=== PATIENT | male | born 1965 | race Caucasian/White ===

== ENCOUNTER → 2018-02-17 08:00 | Outpatient (CLI) | payer OTHER, SELFPAY ==
--- NOTE | 2018-02-17 | DI.MRI.S_ITS ---
PROCEDURE: MR ELBOW LT W CON INDICATIONS: LEFT ELBOW PAIN TECHNIQUE: Noncontrast coronal proton density fast spin echo and T2 fast spin echo with fat saturation, axial and sagittal T1 spin echo and T2 fast spin echo with fat saturation through the elbow. COMPARISON: None. FINDINGS: Image quality: Excellent. Lateral structures: The lateral ulnar collateral ligament and radial collateral ligament both appear intact. The annular ligament also appears intact. The overlying common extensor tendon demonstrates mild tendinopathy proximally without a discrete tear. Medial structures: The ulnar collateral ligament appears intact. The overlying common flexor tendon demonstrates mild attenuated signal proximally with mild peritendinous edema compatible with a mild strain. The ulnar nerve appears normal in size and signal within the cubital tunnel. Anterior structures: The biceps and brachialis tendons both appear intact as they insert onto the proximal radius and ulna, respectively. No bicipitoradial bursal fluid. The median and radial neurovascular bundles appear normal; no focal muscle atrophy to suggest nerve impingement. Posterior structures: The conjoint triceps tendon from the long and lateral heads appears intact. The medial head of the triceps tendon also appears normal, with direct muscle insertion onto the olecranon. No olecranon bursal fluid. Bone and cartilage: No bone marrow contusions or fractures. There is a small focus of cartilage thinning and heterogeneity along the capitellum associated with mild subchondral sclerosis. No associated subchondral edema. IMPRESSION: 1. Mild strain at the origin of the common flexor tendon. 2. Mild focal cartilage degeneration along the capitellum with focal subchondral sclerosis. Dictated by: Chriss Baig M.D. on 02/17/2018 at 14:52 Approved by: Chriss Baig M.D. on 02/17/2018 at 15:04
== END ==
PROVIDERS: PCP Nurse Practitioner Family; Visit Provider Orthopaedic Surgery
DX: S56.212A Strain of other flexor muscle, fascia and tendon at forearm level, left arm, initial encounter (principal); M25.522 Pain in left elbow
CPT/HCPCS: 73221

== ENCOUNTER 2019-01-13 17:37 | Observation (INO) | payer OTHER, SELFPAY ==
[2019-01-13] VITALS (11 sets, daily range): BP systolic 129–154; BP diastolic 86–110; PULSE 65–98; RESP 13–24; TEMP 36.8–37.3; O2SAT 94–100; BMI 25.3
--- NOTE | 2019-01-13 17:57 | PC.NURSE ---
Patient saw by PCP sent to ER for evaluation of possible abscess in rectum. Patient denies fever chills or abnormal BM. Denies trauma or injury.
[2019-01-13 18:00] LABS: Add Manual Diff / Slide Review NO; Basophils Absolute Auto 100 /uL (0-100); Basophils Percent Auto 0.6 % (0-2); Eosinophils Absolute Auto 100 /uL (0-450); Eosinophils Percent Auto 1.2 % (2-4); Hematocrit 44.7 % (41-53); Hemoglobin 14.9 g/dL (13.5-17.5); Lymphocytes Absolute Auto 1500 /uL (1100-4500); Lymphocytes Percent Auto 17.9 % (25-40); Mean Corpuscular HGB Conc 33.5 % (30-36); Mean Corpuscular Hemoglobin 31.2 PG (26-34); Mean Corpuscular Volume 93.3 fL (80-100); Monocytes Absolute Auto 700 /uL (0-900); Monocytes Percent Auto 9.1 % (3-14); Neutrophils Absolute Auto 5800 /uL (1500-7000); Neutrophils Percent Auto 71.2 % (50-75); Platelet Count 240 X10^3/uL (150-400); Red Blood Cell Count 4.79 X10^6/uL (4.5-5.9); Red Cell Distribution Width 13.5 % (11.6-14.8); White Blood Cell Count 8.2 X10^3/uL (4.5-11.0)
--- NOTE | 2019-01-13 18:10 | DI.CT.S_ITS ---
PROCEDURE: CT ABDOMEN PELVIS W CON INDICATIONS: ? rectal abscess TECHNIQUE: After the administration of intravenous contrast, 5 mm thick sections acquired from the diaphragm to the symphysis. 5 mm coronal and sagittal reformats were acquired. For radiation dose reduction, the following was used: automated exposure control, adjustment of mA and/or kV according to patient size. COMPARISON: None. FINDINGS: Image quality: Excellent. ABDOMEN: Lung bases: Lung bases are clear. Heart size is normal. Solid organs: Liver is normal in size and enhancement. Diffuse fatty infiltration of the liver. Gallbladder is within normal limits. Biliary system is non dilated. Pancreas enhances normally. Spleen is normal in size and enhancement. No adrenal nodules. Kidneys demonstrate normal size and enhancement, without hydronephrosis. Peritoneum and bowel: Bowel loops demonstrate normal wall thickness and caliber. There is a 2.8 x 1.7 x 1.7 cm posterior left perirectal fluid collection suspicious for perirectal abscess. No free fluid or air. Appendix is normal. Nodes and vessels: No retroperitoneal or mesenteric adenopathy by size criteria. Aorta and inferior vena cava are normal in size. Miscellaneous: No ventral hernias. PELVIS: Genitourinary: Bladder wall thickness is normal. Miscellaneous: No inguinal hernias or adenopathy. Bones: No suspicious bony lesions. No vertebral body compression fractures. Spine degenerative disease and facet arthropathy noted. Bilateral hip arthroplasties. IMPRESSION: Probable 2.8 x 1.7 x 1.7 cm posterior left perirectal abscess. Dictated by: Henna Artis MD, PhD on 01/13/2019 at 19:31 Approved by: Henna Artis MD, PhD on 01/13/2019 at 19:34
[2019-01-13 18:21] LABS: Alanine Aminotransferase 25 IU/L (21-72); Albumin 4.3 g/dL (3.5-5.0); Albumin Globulin Ratio 1.3 (1.0-2.8); Alkaline Phosphatase 94 U/L (38-126); Aspartate Aminotransferase 32 IU/L (17-59); BUN Creatinine Ratio 14.4 (6-22); Bilirubin Total 0.6 mg/dL (0.2-1.3); Blood Urea Nitrogen 13 mg/dL (9-20); Calcium 9.1 mg/dL (8.4-10.2); Carbon Dioxide 27 mmol/L (22-32); Chloride 105 mmol/L (98-107); Estimated Glomerular Filt Rate > 60.0 mL/min (>60); Globulin 3.2 g/dL (1.7-4.1); Glucose 92 mg/dL (70-100); HEMOLYSIS < 15 (0-50); Potassium 4.3 mmol/L (3.4-5.1); Sodium 141 mmol/L (137-145); Total Protein 7.5 g/dL (6.3-8.2)
[2019-01-13] MEDS: SODIUM CHLORIDE 0.9% 1,000 ML 150 ML IV (19:01)
[2019-01-13] MEDS: MORPHINE 4 MG/ML INJ IV (20:38)
[2019-01-13] MEDS: ONDANSETRON 4 MG/2 ML INJ IV (20:38)
[2019-01-13] MEDS: PIPERACILLIN-TAZO 3.375 GM/50 ML FROZ.PIGGY IV (20:38)
--- NOTE | 2019-01-13 21:03 | ED.SKABFB ---
HPI - Skin/Abscess/Foreign Bdy <ILA Dominguez - Last Filed: 01/13/19 21:10> General Chief complaint: Skin/Abscess/Foreign Body Stated complaint: possible rectal abscess Time Seen by Provider: 01/13/19 17:54 Source: patient and family Mode of arrival: ambulatory Limitations: no limitations History of Present Illness HPI narrative: The patient is a 53-year-old male with a chief complaint of rectal pain. He was sent by his PCP in Thursday, is concerned about a rectal abscess. She states that there is nothing external on exam, but she feels a painful rectal abscess whole left side on internal exam. She would like to have a CT. No fever nausea vomiting or diarrhea. No abdominal pain. He has not taken anything for pain. This pain started on Thursday, worsening with bowel movements. Related Data Allergies Allergy/AdvReac Type Severity Reaction Status Date / Time Penicillins Allergy Verified 01/13/19 17:57 Review of Systems <ILA Dominguez - Last Filed: 01/13/19 21:10> Review of Systems GENERAL: Denies chills, fatigue, malaise, fever, sweats. HEENT: Denies sinus pain, ear pain, sore throat, difficulty swallowing, dizziness. RESPIRATORY: Denies dyspnea, cough, wheezing, hemoptysis, sputum. CARDIOVASCULAR: Denies chest pain, palpitations, orthopnea, edema, GASTROINTESTINAL: See HPI : Denies dysuria, frequency, incontinence, hematuria, urinary retention. MUSCULOSKELETAL: denies weakness, joint pain, or bony pain SKIN: Denies rash, skin lesions, or other NEUROLOGIC: Denies weakness, headache, numbness, change in speech, confusion, seizures, incoordination. PSYCHIATRIC: No concerning psychosocial issues. 12 point review of systems is negative except for those stated above PFSH <ILA Dominguez - Last Filed: 01/13/19 21:10> Surgical History History of hip replacement (Acute) Social History Smoking Status: Never smoker Social History household members: spouse Smoking Status: Never smoker Exam <ILA Dominguez - Last Filed: 01/13/19 21:10> Narrative Exam Narrative: GENERAL: This is a well-nourished, well-developed patient, in no acute distress HEAD: Atraumatic. Normocephalic. No temporal or scalp tenderness. EYES: Pupils equal round and reactive. Extraocular motions intact. No scleral icterus. No injection or drainage. ENT: Nose without bleeding, purulent drainage or septal hematoma. Throat without erythema, tonsillar hypertrophy or exudate. Uvula midline. Airway patent. NECK: Trachea midline. No JVD or lymphadenopathy. Supple, nontender, no meningeal signs. CARDIOVASCULAR: Regular rate and rhythm RESPIRATORY: Clear to auscultation. Breath sounds equal bilaterally. No wheezes, rales, or rhonchi. No cough. No increased respiratory effort. No accessory muscle use. GASTROINTESTINAL: Abdomen soft, non-tender, nondistended. No hepato-splenomegaly, or palpable masses. No guarding. EXTREMITIES: No clubbing, cyanosis, or edema. No joint tenderness, effusion, or edema noted. BACK: Nontender without deformity or crepitance. No flank tenderness. NEURO: AOx3. SKIN: Small area of erythema noted approximately 10:00 on rectal exam. No obvious drainage. Rectal exam with Michelle MEDINA at bedside. Initial Vital Signs Initial Vital Signs: Vital Signs Temperature 98.3 F 01/13/19 17:40 Pulse Rate 98 H 01/13/19 17:40 Respiratory Rate 18 01/13/19 17:40 Blood Pressure 150/110 H 01/13/19 17:40 Pulse Oximetry 100 01/13/19 17:40 <Shaggy Carter MD - Last Filed: 01/13/19 22:56> Initial Vital Signs Initial Vital Signs: Vital Signs Temperature 98.3 F 01/13/19 17:40 Pulse Rate 98 H 01/13/19 17:40 Respiratory Rate 18 01/13/19 17:40 Blood Pressure 150/110 H 01/13/19 17:40 Pulse Oximetry 100 01/13/19 17:40 Course <ILA Dominguez - Last Filed: 01/13/19 21:10> Orders Ordered: ED Orders 01/13/19 17:50 Complete Blood Count AUTO DIFF Stat Comprehensive Metabolic Panel Stat 01/13/19 18:10 CT abdomen pelvis w con Stat 01/13/19 22:06 Abscess Culture Routine Fentanyl (Sublimaze) 50 mcg IV Q5MIN PRN PRN Reason: Pain, Moderate (4-6) Last Admin: 01/13/19 22:45 Dose: 50 mcg Admin: 01/13/19 22:40 Dose: 50 mcg Hydromorphone HCl (Dilaudid) 0.5 mg IV Q5MIN PRN PRN Reason: Pain, Moderate (4-6) Sodium Chloride (Normal Saline 0.9%) 1,000 mls @ 150 mls/hr IV CONT BRYN Last Infusion: 01/13/19 21:25 Dose: 150 mls/hr Admin: 01/13/19 19:01 Dose: 150 mls/hr Lactated Ringer's (Lactated Ringers) 1,000 mls @ 42 mls/hr IV CONT BRYN Lactated Ringer's (Lactated Ringers) 1,000 mls @ 42 mls/hr IV NOW ONE Stop: 01/14/19 21:25 Last Infusion: 01/13/19 22:39 Dose: 0 mls/hr Admin: 01/13/19 21:37 Dose: 42 mls/hr Meperidine HCl (Demerol) 25 mg IV Q5MIN PRN PRN Reason: Pain or shivering Metoclopramide HCl (Reglan) 10 mg IV NOW PRN PRN Reason: Nausea And Vomiting Ondansetron HCl (Zofran) 4 mg IV NOW PRN PRN Reason: Nausea And Vomiting Discontinued Medications Dibucaine (Nupercainal 1% Oint) 1 applic TOP NOW ONE Stop: 01/13/19 22:16 Last Admin: 01/13/19 22:15 Dose: 1 applic Piperacillin/Tazobactam/Dextrose (Zosyn) 3.375 gm in 50 mls @ 100 mls/hr IV NOW ONE Stop: 01/13/19 20:53 Last Infusion: 01/13/19 21:27 Dose: 100 mls/hr Admin: 01/13/19 20:38 Dose: 100 mls/hr Morphine Sulfate (Morphine) 4 mg IV NOW ONE Stop: 01/13/19 20:25 Last Admin: 01/13/19 20:38 Dose: 2 mg Ondansetron HCl (Zofran) 4 mg IV NOW ONE Stop: 01/13/19 20:25 Last Admin: 01/13/19 20:38 Dose: 4 mg Vital Signs - 8 hr 01/13/19 17:40 01/13/19 20:22 01/13/19 21:23 Temperature 98.3 F Pulse Rate 98 H 69 65 Respiratory Rate 18 17 16 Blood Pressure 150/110 H Blood Pressure [Left Arm] 131/87 133/89 Pulse Oximetry 100 100 98 01/13/19 21:25 01/13/19 22:35 01/13/19 22:40 Temperature 99.2 F 98.7 F 98.7 F Pulse Rate 78 88 83 Respiratory Rate 24 17 20 Blood Pressure 152/102 H 154/98 H 151/99 H Blood Pressure [Left Arm] Pulse Oximetry 98 98 97 01/13/19 22:45 Temperature 98.7 F Pulse Rate 84 Respiratory Rate 15 Blood Pressure 140/91 H Blood Pressure [Left Arm] Pulse Oximetry 99 <Shaggy Carter MD - Last Filed: 01/13/19 22:56> Orders Ordered: ED Orders 01/13/19 17:50 Complete Blood Count AUTO DIFF Stat Comprehensive Metabolic Panel Stat 01/13/19 18:10 CT abdomen pelvis w con Stat 01/13/19 22:06 Abscess Culture Routine Fentanyl (Sublimaze) 50 mcg IV Q5MIN PRN PRN Reason: Pain, Moderate (4-6) Last Admin: 01/13/19 22:45 Dose: 50 mcg Admin: 01/13/19 22:40 Dose: 50 mcg Hydromorphone HCl (Dilaudid) 0.5 mg IV Q5MIN PRN PRN Reason: Pain, Moderate (4-6) Sodium Chloride (Normal Saline 0.9%) 1,000 mls @ 150 mls/hr IV CONT BRYN Last Infusion: 01/13/19 21:25 Dose: 150 mls/hr Admin: 01/13/19 19:01 Dose: 150 mls/hr Lactated Ringer's (Lactated Ringers) 1,000 mls @ 42 mls/hr IV CONT BRYN Lactated Ringer's (Lactated Ringers) 1,000 mls @ 42 mls/hr IV NOW ONE Stop: 01/14/19 21:25 Last Infusion: 01/13/19 22:39 Dose: 0 mls/hr Admin: 01/13/19 21:37 Dose: 42 mls/hr Meperidine HCl (Demerol) 25 mg IV Q5MIN PRN PRN Reason: Pain or shivering Metoclopramide HCl (Reglan) 10 mg IV NOW PRN PRN Reason: Nausea And Vomiting Ondansetron HCl (Zofran) 4 mg IV NOW PRN PRN Reason: Nausea And Vomiting Discontinued Medications Dibucaine (Nupercainal 1% Oint) 1 applic TOP NOW ONE Stop: 01/13/19 22:16 Last Admin: 01/13/19 22:15 Dose: 1 applic Piperacillin/Tazobactam/Dextrose (Zosyn) 3.375 gm in 50 mls @ 100 mls/hr IV NOW ONE Stop: 01/13/19 20:53 Last Infusion: 01/13/19 21:27 Dose: 100 mls/hr Admin: 01/13/19 20:38 Dose: 100 mls/hr Morphine Sulfate (Morphine) 4 mg IV NOW ONE Stop: 01/13/19 20:25 Last Admin: 01/13/19 20:38 Dose: 2 mg Ondansetron HCl (Zofran) 4 mg IV NOW ONE Stop: 01/13/19 20:25 Last Admin: 01/13/19 20:38 Dose: 4 mg Vital Signs - 8 hr 01/13/19 17:40 01/13/19 20:22 01/13/19 21:23 Temperature 98.3 F Pulse Rate 98 H 69 65 Respiratory Rate 18 17 16 Blood Pressure 150/110 H Blood Pressure [Left Arm] 131/87 133/89 Pulse Oximetry 100 100 98 01/13/19 21:25 01/13/19 22:35 01/13/19 22:40 Temperature 99.2 F 98.7 F 98.7 F Pulse Rate 78 88 83 Respiratory Rate 24 17 20 Blood Pressure 152/102 H 154/98 H 151/99 H Blood Pressure [Left Arm] Pulse Oximetry 98 98 97 01/13/19 22:45 Temperature 98.7 F Pulse Rate 84 Respiratory Rate 15 Blood Pressure 140/91 H Blood Pressure [Left Arm] Pulse Oximetry 99 MDM - Skin/Abscess/Foreign Bdy <OPHELIA Dominguez- - Last Filed: 01/13/19 21:10> Lab Data Result diagrams: 01/13/19 17:50 01/13/19 17:50 Lab Results 01/13/19 01/13/19 Range/Units 17:50 17:50 WBC 8.2 (4.5-11.0) X10^3/uL RBC 4.79 (4.5-5.9) X10^6/uL Hgb 14.9 (13.5-17.5) g/dL Hct 44.7 (41-53) % MCV 93.3 (80-100) fL MCH 31.2 (26-34) PG MCHC 33.5 (30-36) % RDW 13.5 (11.6-14.8) % Plt Count 240 (150-400) X10^3/uL Neut % (Auto) 71.2 (50-75) % Lymph % (Auto) 17.9 L (25-40) % [place] % (Auto) 9.1 (3-14) % Eos % (Auto) 1.2 L (2-4) % Baso % (Auto) 0.6 (0-2) % Neut # (Auto) 5800 (6547-4642) /uL Lymph # (Auto) 1500 (9646-2074) /uL [place] # (Auto) 700 (0-900) /uL Eos # (Auto) 100 (0-450) /uL Baso # (Auto) 100 (0-100) /uL Sodium 141 (137-145) mmol/L Potassium 4.3 (3.4-5.1) mmol/L Chloride 105 (98-107) mmol/L Carbon Dioxide 27 (22-32) mmol/L BUN 13 (9-20) mg/dL Creatinine 0.90 (0.66-1.25) mg/dL Estimated GFR > 60.0 (>60) mL/min BUN/Creatinine Ratio 14.4 (6-22) Glucose 92 (70-100) mg/dL Calcium 9.1 (8.4-10.2) mg/dL Total Bilirubin 0.6 (0.2-1.3) mg/dL AST 32 (17-59) IU/L ALT 25 (21-72) IU/L Alkaline Phosphatase 94 (38-126) U/L Total Protein 7.5 (6.3-8.2) g/dL Albumin 4.3 (3.5-5.0) g/dL Globulin 3.2 (1.7-4.1) g/dL Albumin/Globulin Ratio 1.3 (1.0-2.8) Urine Dip Bedside Urine Glucose 100 mg/dl Bedside Urine Bilirubin ++ 2 Urine Specific [place] 1.010 Bedside Urine Occult Blood - Negative Bedside Urine pH 5.5 Bedside Urine Protein +/- 15 Bedside Urine Urobilinogen - Negative Bedside Urine Nitrite - Negative Bedside Urine Leukocytes - Negative Esterase Imaging Data CT scan - abdomen: Radiologist's impression: [address] [address] [address] Scan Report Signed Patient: Gayla Hatfield#: [id number] : 1965Acct:[id number] Age/Sex: 53 / MDate of Service: 01/13/19 Loc: ED Accession Number: [id number] Procedure: CT abdomen pelvis w con Ordering Provider: Majo Camacho FINE PATCHER- PROCEDURE: CT ABDOMEN PELVIS W CON INDICATIONS: ? rectal abscess TECHNIQUE: After the administration of intravenous contrast, 5 mm thick sections acquired from the diaphragm to the symphysis. 5 mm coronal and sagittal reformats were acquired. For radiation dose reduction, the following was used: automated exposure control, adjustment of mA and/or kV according to patient size. COMPARISON: None. FINDINGS: Image quality: Excellent. ABDOMEN: Lung bases: Lung bases are clear. Heart size is normal. Solid organs: Liver is normal in size and enhancement. Diffuse fatty infiltration of the liver. Gallbladder is within normal limits. Biliary system is non dilated. Pancreas enhances normally. Spleen is normal in size and enhancement. No adrenal nodules. Kidneys demonstrate normal size and enhancement, without hydronephrosis. Peritoneum and bowel: Bowel loops demonstrate normal wall thickness and caliber. There is a 2.8 x 1.7 x 1.7 cm posterior left perirectal fluid collection suspicious for perirectal abscess. No free fluid or air. Appendix is normal. Nodes and vessels: No retroperitoneal or mesenteric adenopathy by size criteria. Aorta and inferior vena cava are normal in size. Miscellaneous: No ventral hernias. PELVIS: Genitourinary: Bladder wall thickness is normal. Miscellaneous: No inguinal hernias or adenopathy. Bones: No suspicious bony lesions. No vertebral body compression fractures. Spine degenerative disease and facet arthropathy noted. Bilateral hip arthroplasties. IMPRESSION: Probable 2.8 x 1.7 x 1.7 cm posterior left perirectal abscess. Dictated by: Henna Artis MD, PhD on 01/13/2019 at 19:31 Approved by: Henna Artis MD, PhD on 01/13/2019 at 19:34 [facility] Narrative Medical decision making narrative: The patient is a 53-year-old male who presents with rectal pain and has a perirectal abscess. He is overall healthy and takes no prescription medications per day. He declined internal rectal exam, stating he would only do it if he received conscious sedation. Given the size of his abscess, as well as his pain I do not think he is appropriate for I and D in the emergency department. I spoke with Dr. Mendoza who stated that she would take the patient to the operating room for drainage. She requested I give him Zosyn, which I did. He was given morphine as well as Zofran. He has a planned a war time at 10:00 p.m. and will then be admitted. He states understanding and has no questions or concerns. He was hemodynamically stable throughout his stay in the ER. <Shaggy Carter MD - Last Filed: 01/13/19 22:56> Lab Data Lab Results 01/13/19 01/13/19 Range/Units 17:50 17:50 WBC 8.2 (4.5-11.0) X10^3/uL RBC 4.79 (4.5-5.9) X10^6/uL Hgb 14.9 (13.5-17.5) g/dL Hct 44.7 (41-53) % MCV 93.3 (80-100) fL MCH 31.2 (26-34) PG MCHC 33.5 (30-36) % RDW 13.5 (11.6-14.8) % Plt Count 240 (150-400) X10^3/uL Neut % (Auto) 71.2 (50-75) % Lymph % (Auto) 17.9 L (25-40) % [place] % (Auto) 9.1 (3-14) % Eos % (Auto) 1.2 L (2-4) % Baso % (Auto) 0.6 (0-2) % Neut # (Auto) 5800 (7364-3212) /uL Lymph # (Auto) 1500 (7998-3450) /uL [place] # (Auto) 700 (0-900) /uL Eos # (Auto) 100 (0-450) /uL Baso # (Auto) 100 (0-100) /uL Sodium 141 (137-145) mmol/L Potassium 4.3 (3.4-5.1) mmol/L Chloride 105 (98-107) mmol/L Carbon Dioxide 27 (22-32) mmol/L BUN 13 (9-20) mg/dL Creatinine 0.90 (0.66-1.25) mg/dL Estimated GFR > 60.0 (>60) mL/min BUN/Creatinine Ratio 14.4 (6-22) Glucose 92 (70-100) mg/dL Calcium 9.1 (8.4-10.2) mg/dL Total Bilirubin 0.6 (0.2-1.3) mg/dL AST 32 (17-59) IU/L ALT 25 (21-72) IU/L Alkaline Phosphatase 94 (38-126) U/L Total Protein 7.5 (6.3-8.2) g/dL Albumin 4.3 (3.5-5.0) g/dL Globulin 3.2 (1.7-4.1) g/dL Albumin/Globulin Ratio 1.3 (1.0-2.8) Urine Dip Bedside Urine Glucose 100 mg/dl Bedside Urine Bilirubin ++ 2 Urine Specific [place] 1.010 Bedside Urine Occult Blood - Negative Bedside Urine pH 5.5 Bedside Urine Protein +/- 15 Bedside Urine Urobilinogen - Negative Bedside Urine Nitrite - Negative Bedside Urine Leukocytes - Negative Esterase Discharge Plan Departure Patient Disposition: Admitted as Observation Clinical Impression: Rectal abscess Discharge Date/Time: 01/13/19 21:31 Interventions: ED Discharge Assessment Last Done: 01/13/19 21:31 Admit Date/Time: 01/13/19 20:17 Admit Provider: Micaela Mendoza <Shaggy Carter MD - Last Filed: 01/13/19 22:56> Cosign ED Attending Cosjohnature Attestation: I was present in the ER at the time this patient's care. I was available for consultation or to see the patient directly. I agree with the evaluation, assessment and treatment plan.
--- NOTE | 2019-01-13 21:06 | ED_ITS ---
HPI - Skin/Abscess/Foreign Bdy <ILA Dominguez - Last Filed: 01/13/19 21:10> General Chief complaint: Skin/Abscess/Foreign Body Stated complaint: possible rectal abscess Time Seen by Provider: 01/13/19 17:54 Source: patient and family Mode of arrival: ambulatory Limitations: no limitations History of Present Illness HPI narrative: The patient is a 53-year-old male with a chief complaint of rectal pain. He was sent by his PCP in Thursday, is concerned about a rectal abscess. She states that there is nothing external on exam, but she feels a painful rectal abscess whole left side on internal exam. She would like to have a CT. No fever nausea vomiting or diarrhea. No abdominal pain. He has not taken anything for pain. This pain started on Thursday, worsening with bowel movements. Related Data Allergies Allergy/AdvReac Type Severity Reaction Status Date / Time Penicillins Allergy Verified 01/13/19 17:57 Review of Systems <ILA Dominguez - Last Filed: 01/13/19 21:10> Review of Systems GENERAL: Denies chills, fatigue, malaise, fever, sweats. HEENT: Denies sinus pain, ear pain, sore throat, difficulty swallowing, dizziness. RESPIRATORY: Denies dyspnea, cough, wheezing, hemoptysis, sputum. CARDIOVASCULAR: Denies chest pain, palpitations, orthopnea, edema, GASTROINTESTINAL: See HPI : Denies dysuria, frequency, incontinence, hematuria, urinary retention. MUSCULOSKELETAL: denies weakness, joint pain, or bony pain SKIN: Denies rash, skin lesions, or other NEUROLOGIC: Denies weakness, headache, numbness, change in speech, confusion, seizures, incoordination. PSYCHIATRIC: No concerning psychosocial issues. 12 point review of systems is negative except for those stated above PFSH <ILA Dominguez - Last Filed: 01/13/19 21:10> Surgical History History of hip replacement (Acute) Social History Smoking Status: Never smoker Social History household members: spouse Smoking Status: Never smoker Exam <ILA Dominguez - Last Filed: 01/13/19 21:10> Narrative Exam Narrative: GENERAL: This is a well-nourished, well-developed patient, in no acute distress HEAD: Atraumatic. Normocephalic. No temporal or scalp tenderness. EYES: Pupils equal round and reactive. Extraocular motions intact. No scleral icterus. No injection or drainage. ENT: Nose without bleeding, purulent drainage or septal hematoma. Throat without erythema, tonsillar hypertrophy or exudate. Uvula midline. Airway patent. NECK: Trachea midline. No JVD or lymphadenopathy. Supple, nontender, no meningeal signs. CARDIOVASCULAR: Regular rate and rhythm RESPIRATORY: Clear to auscultation. Breath sounds equal bilaterally. No wheezes, rales, or rhonchi. No cough. No increased respiratory effort. No accessory muscle use. GASTROINTESTINAL: Abdomen soft, non-tender, nondistended. No hepato- splenomegaly, or palpable masses. No guarding. EXTREMITIES: No clubbing, cyanosis, or edema. No joint tenderness, effusion, or edema noted. BACK: Nontender without deformity or crepitance. No flank tenderness. NEURO: AOx3. SKIN: Small area of erythema noted approximately 10:00 on rectal exam. No obvious drainage. Rectal exam with Michelle MEDINA at bedside. Initial Vital Signs Initial Vital Signs: Vital Signs Temperature 98.3 F 01/13/19 17:40 Pulse Rate 98 H 01/13/19 17:40 Respiratory Rate 18 01/13/19 17:40 Blood Pressure 150/110 H 01/13/19 17:40 Pulse Oximetry 100 01/13/19 17:40 <Shaggy Carter MD - Last Filed: 01/13/19 22:56> Initial Vital Signs Initial Vital Signs: Vital Signs Temperature 98.3 F 01/13/19 17:40 Pulse Rate 98 H 01/13/19 17:40 Respiratory Rate 18 01/13/19 17:40 Blood Pressure 150/110 H 01/13/19 17:40 Pulse Oximetry 100 01/13/19 17:40 Course <ILA Dominguez - Last Filed: 01/13/19 21:10> Orders Ordered: ED Orders 01/13/19 17:50 Complete Blood Count AUTO DIFF Stat Comprehensive Metabolic Panel Stat 01/13/19 18:10 CT abdomen pelvis w con Stat 01/13/19 22:06 Abscess Culture Routine Fentanyl (Sublimaze) 50 mcg IV Q5MIN PRN PRN Reason: Pain, Moderate (4-6) Last Admin: 01/13/19 22:45 Dose: 50 mcg Admin: 01/13/19 22:40 Dose: 50 mcg Hydromorphone HCl (Dilaudid) 0.5 mg IV Q5MIN PRN PRN Reason: Pain, Moderate (4-6) Sodium Chloride (Normal Saline 0.9%) 1,000 mls @ 150 mls/hr IV CONT BRYN Last Infusion: 01/13/19 21:25 Dose: 150 mls/hr Admin: 01/13/19 19:01 Dose: 150 mls/hr Lactated Ringer's (Lactated Ringers) 1,000 mls @ 42 mls/hr IV CONT BRYN Lactated Ringer's (Lactated Ringers) 1,000 mls @ 42 mls/hr IV NOW ONE Stop: 01/14/19 21:25 Last Infusion: 01/13/19 22:39 Dose: 0 mls/hr Admin: 01/13/19 21:37 Dose: 42 mls/hr Meperidine HCl (Demerol) 25 mg IV Q5MIN PRN PRN Reason: Pain or shivering Metoclopramide HCl (Reglan) 10 mg IV NOW PRN PRN Reason: Nausea And Vomiting Ondansetron HCl (Zofran) 4 mg IV NOW PRN PRN Reason: Nausea And Vomiting Discontinued Medications Dibucaine (Nupercainal 1% Oint) 1 applic TOP NOW ONE Stop: 01/13/19 22:16 Last Admin: 01/13/19 22:15 Dose: 1 applic Piperacillin/Tazobactam/Dextrose (Zosyn) 3.375 gm in 50 mls @ 100 mls/hr IV NOW ONE Stop: 01/13/19 20:53 Last Infusion: 01/13/19 21:27 Dose: 100 mls/hr Admin: 01/13/19 20:38 Dose: 100 mls/hr Morphine Sulfate (Morphine) 4 mg IV NOW ONE Stop: 01/13/19 20:25 Last Admin: 01/13/19 20:38 Dose: 2 mg Ondansetron HCl (Zofran) 4 mg IV NOW ONE Stop: 01/13/19 20:25 Last Admin: 01/13/19 20:38 Dose: 4 mg Vital Signs - 8 hr 01/13/19 17:40 01/13/19 20:22 01/13/19 21:23 Temperature 98.3 F Pulse Rate 98 H 69 65 Respiratory Rate 18 17 16 Blood Pressure 150/110 H Blood Pressure [Left Arm] 131/87 133/89 Pulse Oximetry 100 100 98 01/13/19 21:25 01/13/19 22:35 01/13/19 22:40 Temperature 99.2 F 98.7 F 98.7 F Pulse Rate 78 88 83 Respiratory Rate 24 17 20 Blood Pressure 152/102 H 154/98 H 151/99 H Blood Pressure [Left Arm] Pulse Oximetry 98 98 97 01/13/19 22:45 Temperature 98.7 F Pulse Rate 84 Respiratory Rate 15 Blood Pressure 140/91 H Blood Pressure [Left Arm] Pulse Oximetry 99 <Shaggy Carter MD - Last Filed: 01/13/19 22:56> Orders Ordered: ED Orders 01/13/19 17:50 Complete Blood Count AUTO DIFF Stat Comprehensive Metabolic Panel Stat 01/13/19 18:10 CT abdomen pelvis w con Stat 01/13/19 22:06 Abscess Culture Routine Fentanyl (Sublimaze) 50 mcg IV Q5MIN PRN PRN Reason: Pain, Moderate (4-6) Last Admin: 01/13/19 22:45 Dose: 50 mcg Admin: 01/13/19 22:40 Dose: 50 mcg Hydromorphone HCl (Dilaudid) 0.5 mg IV Q5MIN PRN PRN Reason: Pain, Moderate (4-6) Sodium Chloride (Normal Saline 0.9%) 1,000 mls @ 150 mls/hr IV CONT BRYN Last Infusion: 01/13/19 21:25 Dose: 150 mls/hr Admin: 01/13/19 19:01 Dose: 150 mls/hr Lactated Ringer's (Lactated Ringers) 1,000 mls @ 42 mls/hr IV CONT BRYN Lactated Ringer's (Lactated Ringers) 1,000 mls @ 42 mls/hr IV NOW ONE Stop: 01/14/19 21:25 Last Infusion: 01/13/19 22:39 Dose: 0 mls/hr Admin: 01/13/19 21:37 Dose: 42 mls/hr Meperidine HCl (Demerol) 25 mg IV Q5MIN PRN PRN Reason: Pain or shivering Metoclopramide HCl (Reglan) 10 mg IV NOW PRN PRN Reason: Nausea And Vomiting Ondansetron HCl (Zofran) 4 mg IV NOW PRN PRN Reason: Nausea And Vomiting Discontinued Medications Dibucaine (Nupercainal 1% Oint) 1 applic TOP NOW ONE Stop: 01/13/19 22:16 Last Admin: 01/13/19 22:15 Dose: 1 applic Piperacillin/Tazobactam/Dextrose (Zosyn) 3.375 gm in 50 mls @ 100 mls/hr IV NOW ONE Stop: 01/13/19 20:53 Last Infusion: 01/13/19 21:27 Dose: 100 mls/hr Admin: 01/13/19 20:38 Dose: 100 mls/hr Morphine Sulfate (Morphine) 4 mg IV NOW ONE Stop: 01/13/19 20:25 Last Admin: 01/13/19 20:38 Dose: 2 mg Ondansetron HCl (Zofran) 4 mg IV NOW ONE Stop: 01/13/19 20:25 Last Admin: 01/13/19 20:38 Dose: 4 mg Vital Signs - 8 hr 01/13/19 17:40 01/13/19 20:22 01/13/19 21:23 Temperature 98.3 F Pulse Rate 98 H 69 65 Respiratory Rate 18 17 16 Blood Pressure 150/110 H Blood Pressure [Left Arm] 131/87 133/89 Pulse Oximetry 100 100 98 01/13/19 21:25 01/13/19 22:35 01/13/19 22:40 Temperature 99.2 F 98.7 F 98.7 F Pulse Rate 78 88 83 Respiratory Rate 24 17 20 Blood Pressure 152/102 H 154/98 H 151/99 H Blood Pressure [Left Arm] Pulse Oximetry 98 98 97 01/13/19 22:45 Temperature 98.7 F Pulse Rate 84 Respiratory Rate 15 Blood Pressure 140/91 H Blood Pressure [Left Arm] Pulse Oximetry 99 MDM - Skin/Abscess/Foreign Bdy <OPHELIA Dominguez- - Last Filed: 01/13/19 21:10> Lab Data Result diagrams: 01/13/19 17:50 01/13/19 17:50 Lab Results 01/13/19 01/13/19 Range/Units 17:50 17:50 WBC 8.2 (4.5-11.0) X10^3/uL RBC 4.79 (4.5-5.9) X10^6/uL Hgb 14.9 (13.5-17.5) g/dL Hct 44.7 (41-53) % MCV 93.3 (80-100) fL MCH 31.2 (26-34) PG MCHC 33.5 (30-36) % RDW 13.5 (11.6-14.8) % Plt Count 240 (150-400) X10^3/uL Neut % (Auto) 71.2 (50-75) % Lymph % (Auto) 17.9 L (25-40) % [place] % (Auto) 9.1 (3-14) % Eos % (Auto) 1.2 L (2-4) % Baso % (Auto) 0.6 (0-2) % Neut # (Auto) 5800 (0602-7388) /uL Lymph # (Auto) 1500 (6218-6392) /uL [place] # (Auto) 700 (0-900) /uL Eos # (Auto) 100 (0-450) /uL Baso # (Auto) 100 (0-100) /uL Sodium 141 (137-145) mmol/L Potassium 4.3 (3.4-5.1) mmol/L Chloride 105 (98-107) mmol/L Carbon Dioxide 27 (22-32) mmol/L BUN 13 (9-20) mg/dL Creatinine 0.90 (0.66-1.25) mg/dL Estimated GFR > 60.0 (>60) mL/min BUN/Creatinine Ratio 14.4 (6-22) Glucose 92 (70-100) mg/dL Calcium 9.1 (8.4-10.2) mg/dL Total Bilirubin 0.6 (0.2-1.3) mg/dL AST 32 (17-59) IU/L ALT 25 (21-72) IU/L Alkaline Phosphatase 94 (38-126) U/L Total Protein 7.5 (6.3-8.2) g/dL Albumin 4.3 (3.5-5.0) g/dL Globulin 3.2 (1.7-4.1) g/dL Albumin/Globulin Ratio 1.3 (1.0-2.8) Urine Dip Bedside Urine Glucose 100 mg/dl Bedside Urine Bilirubin ++ 2 Urine Specific [place] 1.010 Bedside Urine Occult Blood - Negative Bedside Urine pH 5.5 Bedside Urine Protein +/- 15 Bedside Urine Urobilinogen - Negative Bedside Urine Nitrite - Negative Bedside Urine Leukocytes - Negative Esterase Imaging Data CT scan - abdomen: Radiologist's impression: [address] [address] [address] Scan Report Signed Patient: Gayla Hatfield#: [id number] : 1965Acct:[id number] Age/Sex: 53 / MDate of Service: 01/13/19 Loc: ED Accession Number: [id number] Procedure: CT abdomen pelvis w con Ordering Provider: Majo Camacho FLOOR SPECIALIST- PROCEDURE: CT ABDOMEN PELVIS W CON INDICATIONS: ? rectal abscess TECHNIQUE: After the administration of intravenous contrast, 5 mm thick sections acquired from the diaphragm to the symphysis. 5 mm coronal and sagittal reformats were acquired. For radiation dose reduction, the following was used: automated exposure control, adjustment of mA and/or kV according to patient size. COMPARISON: None. FINDINGS: Image quality: Excellent. ABDOMEN: Lung bases: Lung bases are clear. Heart size is normal. Solid organs: Liver is normal in size and enhancement. Diffuse fatty infiltration of the liver. Gallbladder is within normal limits. Biliary system is non dilated. Pancreas enhances normally. Spleen is normal in size and enhancement. No adrenal nodules. Kidneys demonstrate normal size and enhancement, without hydronephrosis. Peritoneum and bowel: Bowel loops demonstrate normal wall thickness and caliber. There is a 2.8 x 1.7 x 1.7 cm posterior left perirectal fluid collection suspicious for perirectal abscess. No free fluid or air. Appendix is normal. Nodes and vessels: No retroperitoneal or mesenteric adenopathy by size criteria. Aorta and inferior vena cava are normal in size. Miscellaneous: No ventral hernias. PELVIS: Genitourinary: Bladder wall thickness is normal. Miscellaneous: No inguinal hernias or adenopathy. Bones: No suspicious bony lesions. No vertebral body compression fractures. Spine degenerative disease and facet arthropathy noted. Bilateral hip arthroplasties. IMPRESSION: Probable 2.8 x 1.7 x 1.7 cm posterior left perirectal abscess. Dictated by: Henna Artis MD, PhD on 01/13/2019 at 19:31 Approved by: Henna Artis MD, PhD on 01/13/2019 at 19:34 [facility] Narrative Medical decision making narrative: The patient is a 53-year-old male who presents with rectal pain and has a perirectal abscess. He is overall healthy and takes no prescription medications per day. He declined internal rectal exam, stating he would only do it if he received conscious sedation. Given the size of his abscess, as well as his pain I do not think he is appropriate for I and D in the emergency department. I spoke with Dr. Mendoza who stated that she would take the patient to the operating room for drainage. She requested I give him Zosyn, which I did. He was given morphine as well as Zofran. He has a planned a war time at 10:00 p.m. and will then be admitted. He states understanding and has no questions or concerns. He was hemodynamically stable throughout his stay in the ER. <Shaggy Carter MD - Last Filed: 01/13/19 22:56> Lab Data Lab Results 01/13/19 01/13/19 Range/Units 17:50 17:50 WBC 8.2 (4.5-11.0) X10^3/uL RBC 4.79 (4.5-5.9) X10^6/uL Hgb 14.9 (13.5-17.5) g/dL Hct 44.7 (41-53) % MCV 93.3 (80-100) fL MCH 31.2 (26-34) PG MCHC 33.5 (30-36) % RDW 13.5 (11.6-14.8) % Plt Count 240 (150-400) X10^3/uL Neut % (Auto) 71.2 (50-75) % Lymph % (Auto) 17.9 L (25-40) % [place] % (Auto) 9.1 (3-14) % Eos % (Auto) 1.2 L (2-4) % Baso % (Auto) 0.6 (0-2) % Neut # (Auto) 5800 (6910-3465) /uL Lymph # (Auto) 1500 (6858-8616) /uL [place] # (Auto) 700 (0-900) /uL Eos # (Auto) 100 (0-450) /uL Baso # (Auto) 100 (0-100) /uL Sodium 141 (137-145) mmol/L Potassium 4.3 (3.4-5.1) mmol/L Chloride 105 (98-107) mmol/L Carbon Dioxide 27 (22-32) mmol/L BUN 13 (9-20) mg/dL Creatinine 0.90 (0.66-1.25) mg/dL Estimated GFR > 60.0 (>60) mL/min BUN/Creatinine Ratio 14.4 (6-22) Glucose 92 (70-100) mg/dL Calcium 9.1 (8.4-10.2) mg/dL Total Bilirubin 0.6 (0.2-1.3) mg/dL AST 32 (17-59) IU/L ALT 25 (21-72) IU/L Alkaline Phosphatase 94 (38-126) U/L Total Protein 7.5 (6.3-8.2) g/dL Albumin 4.3 (3.5-5.0) g/dL Globulin 3.2 (1.7-4.1) g/dL Albumin/Globulin Ratio 1.3 (1.0-2.8) Urine Dip Bedside Urine Glucose 100 mg/dl Bedside Urine Bilirubin ++ 2 Urine Specific [place] 1.010 Bedside Urine Occult Blood - Negative Bedside Urine pH 5.5 Bedside Urine Protein +/- 15 Bedside Urine Urobilinogen - Negative Bedside Urine Nitrite - Negative Bedside Urine Leukocytes - Negative Esterase Discharge Plan Departure Patient Disposition: Admitted as Observation Clinical Impression: Rectal abscess Discharge Date/Time: 01/13/19 21:31 Interventions: ED Discharge Assessment Last Done: 01/13/19 21:31 Admit Date/Time: 01/13/19 20:17 Admit Provider: Micaela Mendoza <Shaggy Carter MD - Last Filed: 01/13/19 22:56> Cosign ED Attending Cosjohnature Attestation: I was present in the ER at the time this patient's care. I was available for consultation or to see the patient directly. I agree with the evaluation, assessment and treatment plan.
--- NOTE | 2019-01-13 21:12 | PM.HP.1 ---
History of Present Illness Date Patient Seen: 01/13/19 Time Patient Seen: 21:12 Chief complaint: possible rectal abscess Narrative: 53yo M presenting with increasing patric-rectal pain for past 4 days [place] Refused exam without sedation per ED. Imaging shows a patric-rectal abscess. Labs unremarkable, vitals normal. Patient History Surgical History History of hip replacement (Acute) Social History Smoking Status: Never smoker Family & Social History Safety & Behavioral: Feels Safe in Current Yes Environment Been Physically Hurt or No Threatened By a Person Tobacco & Substance use: Smoking Status Never smoker alcohol intake frequency 0-2 drinks per day Substance Use Type does not use Meds Allergies Allergy/AdvReac Type Severity Reaction Status Date / Time Penicillins Allergy Verified 01/13/19 17:57 Review of Systems Constitutional Constitutional: Reports as per HPI Exam Vital Signs (past 8 hours): - 01/13/19 17:40 01/13/19 20:22 Temperature 98.3 F Pulse Rate 98 H 69 Respiratory Rate 18 17 Blood Pressure 150/110 H Blood Pressure [Left Arm] 131/87 Pulse Oximetry 100 100 Oxygen Delivery Method Room Air Narrative Exam Narrative: AAO, NAD, overweight male EOMI, MMM, no scleral icterus unlabored RA soft, nt/nd MAEW visible skin dry and intact Objective Imaging CT scan - pelvis: Radiologist's impression: IMPRESSION: Probable 2.8 x 1.7 x 1.7 cm posterior left perirectal abscess. Labs Result Diagrams: 01/13/19 17:50 01/13/19 17:50 Labs: Laboratory Results - last 24 hr 01/13/19 01/13/19 17:50 17:50 WBC 8.2 RBC 4.79 Hgb 14.9 Hct 44.7 MCV 93.3 MCH 31.2 MCHC 33.5 RDW 13.5 Plt Count 240 Neut % (Auto) 71.2 Lymph % (Auto) 17.9 L [place] % (Auto) 9.1 Eos % (Auto) 1.2 L Baso % (Auto) 0.6 Neut # (Auto) 5800 Lymph # (Auto) 1500 [place] # (Auto) 700 Eos # (Auto) 100 Baso # (Auto) 100 Sodium 141 Potassium 4.3 Chloride 105 Carbon Dioxide 27 BUN 13 Creatinine 0.90 Estimated GFR > 60.0 BUN/Creatinine Ratio 14.4 Glucose 92 Calcium 9.1 Total Bilirubin 0.6 AST 32 ALT 25 Alkaline Phosphatase 94 Total Protein 7.5 Albumin 4.3 Globulin 3.2 Albumin/Globulin Ratio 1.3 Assessment & Plan Assessment & Plan narrative: - apparent patric-rectal abscess -> OR for I&D, all R/B/A discussed and pt wishes to proceed - IV abx - will keep overnight and do wound care teaching in AM
[2019-01-13] MEDS: LACTATED RINGERS 1,000 ML 42 ML IV (21:37)
--- NOTE | 2019-01-13 21:38 | SUR.OPER ---
Lithotomy on padded OR bed, head on pillow, arms secured on padded arm boards at <90 degrees abduction. Legs secured in padded yellow fins stirrups.
[2019-01-13] MEDS: DIBUCAINE 1% OINT 28 GM 1 APPLIC TOP (22:15)
--- NOTE | 2019-01-13 22:27 | PM.OP.1 ---
Operative Date/Time/Diagnoses Date of procedure: 01/13/19 Time of procedure: 22:27 Pre-op diagnosis: Patric-rectal Abscess Post-op diagnosis: same Procedure & Clinicians Procedure: 1. Exam Under Anesthesia 2. Incision and Drainage of Patric-rectal Abscess Same procedure as scheduled: Yes Indications: 53yo M with increasing rectal pain for 3-[address] today shows a patric-rectal abscess. Plan for I&D after informed consent. Surgeon: Micaela Tabler Click Yes if Unassisted: Yes Anesthesia Type: General Operative Notes Findings: 1. Patric-rectal abscess 2. likely fistula tract 3. Internal Hemorrhoids Closure Type: non-primary Specimen(s): other (culture swab) Estimated Blood Loss (mL): 5 Procedure in detail: The patient was taken to the operating room and placed on the operating table in lithotomy position. The perineal and buttocks areas were prepped and draped in usual sterile fashion. A retractor was placed in the anus. This was purulent drainage noted from a small opening. A probe was introduced but would not pass significantly. This was in an area of a boggy internal hemorrhoid which developed irritation and began to bleed so probing was stopped. Two small chromic sutures are placed in the area of the bleeding mucosa. Attention is turned to the abscess cavity which is opened with a 15 blade scalpel and purulent fluid drained. Some was sent for culture. The cavity is probed with no further loculations disrupted nor areas of fluctuance or induration felt. Hemostasis was obtained using electrocautery. One inch iodoform tape is used to pack the cavity. The remainder of the examined anal canal and perianal skin was examined and no other defects or evidence of abscess were noted. Lidocaine jelly was inserted into the anus. An ABD pad and mesh briefs were placed. The patient was awakened and taken to the PACU in stable condition. All counts were correct at the end of the procedure. The patient tolerated the procedure well. Complications: none Condition: stable Disposition: PACU Plan for aftercare: Admit for observation and wound care teaching.
[2019-01-13] MEDS: fentaNYL 100 MCG/2 ML INJ 50 MCG IV ×2 (22:40→22:45)
[2019-01-14] VITALS (7 sets, daily range): BP systolic 99–140; BP diastolic 37–96; PULSE 66–80; RESP 16–18; TEMP 36.4–36.8; O2SAT 93–98
[2019-01-14] MEDS: OXYCODONE/ACETAMINOPHEN 5/325 TABLET 1 TAB PO ×2 (00:09→04:20)
[2019-01-14] MEDS: LACTATED RINGERS 1,000 ML 42 ML IV (00:10)
--- NOTE | 2019-01-14 01:37 | PC.NURSE ---
2323-Pt. admitted to room 221 from PACU, A&O, awake. Reported pain level 6/10, denies any nausea, medicated with 1 tab. Percocet took pill with chicken broth & saltine crackers. Top layer dressing saturated with serous-sang. drainage changed drsg. & peripad. Spouse at the bedside very supportive & assisting pt's. care. Instructed to call nursing staff if he needed assistance & pain medication. Call light w/in reached, will cont. POC & monitor.
--- NOTE | 2019-01-14 06:53 | PC.NURSE ---
Top layer drsg. changed x2, small amount of serous-sang. drainage noted. Dressing changed to 4x4 & pink patric-pad applied. Pain level is @ 3-4/10 this morning. Pt. voiced out that he prefers taking Ibuprofen instead of narcotic, but he does not want me to call his surgeon. He states I will let her know & get an order for Motrin this morning. Will report to day RN. & monitor.
[2019-01-14] MEDS: POLYETHYLENE GLYCOL 3350 17 GM POWD.PACK PO (08:41)
[2019-01-14] MEDS: ACETAMINOPHEN 325 MG TABLET 650 MG PO (08:41)
--- NOTE | 2019-01-14 11:11 | PC.NURSE ---
Pt's abcess to l.buttock packed and patric pad has a small amount of ss drainage to patric pad. Pt is independent in room and states that pain level is a 4/10. Given tylenol for comfort as he does not care to take narcotics. Pt experienced some constipation issues with another surgery that he had and would like to stay away from that happening. VSS. at bedside, tolerating a general diet and denies any kind of nausea. Pt will be discharged back to [facility] today.
--- NOTE | 2019-01-14 11:33 | PM.DS.1 ---
History of Present Illness Chief complaint: possible rectal abscess Narrative: 53yo M presenting with increasing maria del carmen-rectal pain for past 4 days referred from [place] P[facility]. Refused exam without sedation per ED. Imaging shows a maria del carmen-rectal abscess. Labs unremarkable, vitals normal. Discharge Providers Date of admission: 01/13/19 20:17 Discharge Date: 01/14/19 Primary care physician: JERAD Pedraza Consults: 01/13/19 23:36 Consult to Discharge Planning Routine Comment: Discharge provider: Micaela Mendoza MD Summary Discharge Diagnosis: Maria Del Carmen-rectal Abscess Hospital Course: 53yo M [facility] of increasing maria del carmen-anal pain. Found to have an abscess so underwent an I&D with drainage of purulent material and suspicion of fistula tract noted. He is discharged home with a pain regimen and bowel regimen as well as thorough wound care instructions. Status at Discharge Cognitive/behavioral status at discharge: at baseline, oriented Functional status at discharge: independent ambulation Overall status at discharge: patient is progressing back to baseline Time Spent with Patient Less than 30 minutes Exam Vital Signs (past 8 hours): - 01/14/19 03:43 01/14/19 06:21 01/14/19 09:00 Temperature 97.6 F 97.6 F Pulse Rate 66 70 Respiratory Rate 17 16 Blood Pressure 113/74 120/75 Pulse Oximetry 95 98 01/14/19 11:08 Temperature Pulse Rate Respiratory Rate Blood Pressure Pulse Oximetry 98 Oxygen Delivery Method Room Air Oxygen Flow Rate 0 Narrative Exam Narrative: AAO, NAD, fe/male of healthy weight EOMI, MMM, no scleral icterus unlabored RA soft, nt/nd maria del carmen-anal incision clean and dry, packing removed, ttp, minimal erythema MAEW visible skin dry and intact Objective Labs Result Diagrams: 01/13/19 17:50 01/13/19 17:50 Labs: Laboratory Results - last 24 hr 01/13/19 01/13/19 17:50 17:50 WBC 8.2 RBC 4.79 Hgb 14.9 Hct 44.7 MCV 93.3 MCH 31.2 MCHC 33.5 RDW 13.5 Plt Count 240 Neut % (Auto) 71.2 Lymph % (Auto) 17.9 L [place] % (Auto) 9.1 Eos % (Auto) 1.2 L Baso % (Auto) 0.6 Neut # (Auto) 5800 Lymph # (Auto) 1500 [place] # (Auto) 700 Eos # (Auto) 100 Baso # (Auto) 100 Sodium 141 Potassium 4.3 Chloride 105 Carbon Dioxide 27 BUN 13 Creatinine 0.90 Estimated GFR > 60.0 BUN/Creatinine Ratio 14.4 Glucose 92 Calcium 9.1 Total Bilirubin 0.6 AST 32 ALT 25 Alkaline Phosphatase 94 Total Protein 7.5 Albumin 4.3 Globulin 3.2 Albumin/Globulin Ratio 1.3 Discharge Plan Discharge Plan Patient Disposition: Home Discharge Med Rec/Prescriptions Prescriptions: New polyethylene glycol 3350 17 gram Powder In Packet 17 gm PO DAILY 60 Days RF: 0 oxycodone-acetaminophen 5-325 mg Tablet 1 tab PO Q4HR PRN (Reason: Pain, Moderate (4-6)) Qty: 40 RF: 0 docusate sodium [DOK] 100 mg Capsule 100 mg PO BID PRN (Reason: Constipation) 60 Days Qty: 120 RF: 2 ibuprofen 800 mg tablet 800 mg PO TID Qty: 60 RF: 0 Follow up/Referrals: Whitney Warren ARNP [Primary Care Provider] - Micaela Mendoza MD [Physician] - Provider Discharge Instructions Diet: Diet as Tolerated Skin/Wound/Dressing Care Skin care: sitz baths BID with flushing of cavity Visit Report/Discharge Packet Instructions: DI for Incision and Drainage Stand Alone Forms: Surgery Discharge Discharge Data Primary Care Provider: Whitney Warren Attending Provider: Micaela Mendoza Admit Date/Time: 01/13/19 20:17 Quality VTE Deep Vein Thrombosis/Pulmonary Embolism Present on Admission: No
--- NOTE | 2019-01-14 12:58 | CM.IDA ---
Initial DCP Assessment Note: Pt is a 53 yo male, resident of [place], now POD#1 from I&D of a patric-rectal abscess . PCP: Whitney Minaya: [place] Reviewed chart, pt discussed in multidisciplinary rounds this morning. Pt has been DC by Dr Mendoza today, home w/family to assist w/ pain regimen, bowel regimen, and wound care instructions. Pt agreeable to this plan. No needs expected from DC planning team although will remain available in case this changes. ROMARIO Berumen Discharge Planning/Care Management CM Discharge Assessment Start: 01/14/19 12:52 Freq: Status: Active Protocol: Document 01/14/19 12:52 BELIA (Rec: 01/14/19 12:58 BELIA [id number]) Discharge Planning Assessment Assigned [employer] ROMARIO Napier DPOA/Assigned Designee Name Jolene Hatfield, spouse Contact Information [phone] Advance Directives? No History Provided By Patient Medical Record Prior Living Arrangements House Household Members spouse Type of transporation used prior to Drives own vehicle admit Willing to Return to Facility? No Independent with ADL's Yes Is patient alert and oriented? Yes Barriers to Discharge No Discharge Plan Home Transportation Arrangement Family Referrals Initiated None needed Review Status In Process
== END 2019-01-14 12:43 | disposition home or self-care (01) ==
LOC: ED 17:54 → AC 21:11
PROVIDERS: Admitting Provider Surgery; Emergency Provider Nurse Practitioner Family; PCP Nurse Practitioner Family; Visit Provider Surgery
PROC: (CPT 46040; principal; 2019-01-13 22:00)
DX: K61.1 Rectal abscess (principal); K62.89 Other specified diseases of anus and rectum; K64.8 Other hemorrhoids
CPT/HCPCS: 46040; 36591; 74177; 80053; 81003; 85025; 87070; 87075; 87076; 87077; 87186; 87205; 96361; 96365; 96375; 99283; 99284; G0378; J1100; J2250; J2270; J2405; J2543; J2704; J3010; Q9967

== ENCOUNTER 2019-01-18 07:31 | Observation (INO) | payer OTHER, SELFPAY ==
[2019-01-13 23:23] VITALS: BMI 25.3
[2019-01-18] VITALS (8 sets, daily range): BP systolic 120–143; BP diastolic 84–98; PULSE 66–94; RESP 10–18; TEMP 36.2–37.1; O2SAT 96–100; BMI 28.0
[2019-01-18] MEDS: SODIUM CHLORIDE 0.9% 1,000 ML 1000 ML IV (07:51)
[2019-01-18] MEDS: KETOROLAC 60 MG/2 ML VIAL 30 MG IV (07:51)
[2019-01-18] MEDS: ONDANSETRON 4 MG/2 ML INJ IV (07:51)
[2019-01-18] MEDS: HYDROMORPHONE 1 MG INJ IV ×2 (07:52→11:54)
[2019-01-18 07:57] LABS: Add Manual Diff / Slide Review NO; Basophils Absolute Auto 0 /uL (0-100); Basophils Percent Auto 0.4 % (0-2); Eosinophils Absolute Auto 100 /uL (0-450); Eosinophils Percent Auto 1.2 % (2-4); Hemoglobin 15.3 g/dL (13.5-17.5); Lymphocytes Absolute Auto 1000 /uL (1100-4500); Mean Corpuscular HGB Conc 34.1 % (30-36); Mean Corpuscular Hemoglobin 31.3 PG (26-34); Monocytes Absolute Auto 800 /uL (0-900); Monocytes Percent Auto 8.9 % (3-14); Neutrophils Absolute Auto 7100 /uL (1500-7000); Neutrophils Percent Auto 78.5 % (50-75); Platelet Count 260 X10^3/uL (150-400); Red Blood Cell Count 4.89 X10^6/uL (4.5-5.9); Red Cell Distribution Width 13.4 % (11.6-14.8)
--- NOTE | 2019-01-18 08:03 | PC.NURSE ---
Patient had surgical I&D on night. Discharged thursday. Patient reports feeling well up until thursday evening. Woke this morning in agony took oxycodone but reports feeling extremely weak, increase in pain and couple episodes of vomiting. Report no straining with with BM, no heavy lifting. Wound located on left side of rectum. Small area of firmness to 8 o clock area of incision. Pt denies fever or chills.
--- NOTE | 2019-01-18 08:07 | ED.SKABFB ---
HPI - Skin/Abscess/Foreign Bdy General Chief complaint: Skin/Abscess/Foreign Body Stated complaint: pain,post surgery Time Seen by Provider: 01/18/19 07:33 Source: patient and family Mode of arrival: ambulatory Limitations: no limitations History of Present Illness HPI narrative: Patient comes to the emergency department complaining of increased pain and ?not feeling well? for the last 24 hours. Patient was seen on the for a small perirectal abscess, which was I and D by Dr. Mendoza. He was discharged on January 14, and was taking only ibuprofen for the pain, which he states was managing his pain fine. However, yesterday, the patient began to notice that his pain had increased in the rectal area. He denies fevers or chills, and did not notice an increase of drainage from the wound. Patient's states they did notice a ?bump? near the I&D site. Patient states that overnight, he had to take to his oxycodone to try to manage the pain, and that by this morning, he was quite nauseated and vomited on the [place] on his way here. Patient states he just generally does not feel well. Patient denies any history of diabetes. No history of Crohn's disease, ulcerative colitis, or other inflammatory bowel disorder. No rectal intercourse. No trauma to the area since the I and D. Patient states he is otherwise healthy. No other complaints at this time. Records indicate that there was suspicion of a probable fistula that was associated with the abscess. Patient states that he has continued to have drainage from the wound, which appears bloody. Drainage has not increased or decreased in quantity. Related Data Previous Rx's Medication Instructions Recorded docusate sodium [DOK] 100 mg PO BID PRN 60 Days #120 cap 01/14/19 ibuprofen 800 mg PO TID #60 tab 01/14/19 polyethylene glycol 3350 17 gm PO DAILY 60 Days each 01/14/19 oxycodone See Rx Instructions .ROUTE 01/18/19 .COMPLEX PRN #20 tab Allergies Allergy/AdvReac Type Severity Reaction Status Date / Time Penicillins Allergy Intermediate Rash Verified 01/18/19 13:43 Review of Systems Constitutional Denies chills, Denies fever(s), Denies lethargy and Denies weakness Eyes Denies change in vision, Denies eye discharge, Denies irritation and Denies loss of vision ENT Ears, Nose, Mouth, and Throat: Denies change in voice, Denies neck pain and Denies sore throat Cardiovascular Denies chest pain, Denies irregular heart rhythm, Denies lightheadedness, Denies palpitations, Denies dyspnea, Denies dyspnea on exertion and Denies orthopnea Respiratory Denies cough, Denies dyspnea, Denies dyspnea on exertion and Denies wheezing Gastrointestinal Gastrointestinal: Denies abdominal pain, Denies change in bowel habits, Denies diarrhea, Reports nausea and Reports vomiting Genitourinary Denies hematuria, Denies flank pain, Denies urinary incontinence and Denies urinary urgency Comments: Rectal pain Musculoskeletal Denies neck pain Integumentary/Breasts Denies pruritus, Denies erythema, Denies rash and Denies wounds Neurologic Denies confusion, Denies loss of vision and Denies weakness Psychiatric Denies anxiety, Denies confusion, Denies depression, Denies homicidal ideation and Denies suicidal ideation Endocrine Denies palpitations Hematologic/Lymphatic Denies easy bruising Allergic/Immunologic Denies wheezing [facility] Medical History (Updated 01/18/19 @ 13:44 by Pooja Botello RN) Encounter for recheck of abscess following incision and drainage (Acute) Perirectal abscess (Acute) Acid reflux (Acute) Arthritis (Acute) Melanoma (Acute) Surgical History (Updated 01/18/19 @ 13:44 by Pooja Botello RN) History of hip replacement (Acute) S/P total hip resurfacing (Acute) Social History household members: spouse Smoking Status: Never smoker Social History household members: spouse Smoking Status: Never smoker Exam Initial Vital Signs Initial Vital Signs: Vital Signs Temperature 98.6 F 01/18/19 07:35 Pulse Rate 66 01/18/19 07:35 Respiratory Rate 18 01/18/19 07:35 Blood Pressure 138/94 H 01/18/19 07:35 Pulse Oximetry 100 01/18/19 07:35 Const General: cooperative and well developed Nutritional Appearance: well nourished Orientation: alert, awake, oriented x3 and not confused HENMT Head: normocephalic and atraumatic Ears: external ears normal Nose: external nose normal and No nasal discharge Face and sinus: face symmetric and No dry mucous membranes Mouth: oral mucosae normal and moist mucous membranes Teeth and gingiva: dentition normal Throat: tonsils normal and uvula midline Eyes General: appearance normal, both eyes and all related structures Eyelids: eyelids normal Conjunctivae: conjunctivae normal Sclera: sclerae normal Pupils: PERRL EOM: EOM intact bilaterally Neck Neck: normal visual inspection, trachea midline, No lymphadenopathy, No midline deformity and No JVD Lymphatic: No lymphedema Chest Chest: normal inspection of the chest Resp Effort & Inspection: normal respiratory effort, able to speak in complete sentences, no respiratory distress and no use of accessory muscles Auscultation: clear to auscultation bilaterally, no rales, no rhonchi and no wheezes Cardio Rate: regular rate Rhythm: regular rhythm Heart Sounds: no click, no gallops, no murmurs and no rubs Pulses: normal peripheral pulses GI Inspection: non-distended Palpation: soft, no hepatosplenomegaly, No guarding, No pulsatile mass and No tender Auscultation: normal bowel sounds Other: Patient has a normal-appearing anus and anal folds. He he has an approximately 1 and has cm incision site which is open in healing by secondary intention, just posterior to the anus on the left side. This is moist, but no drainage is expressible from the area. The tissue in general is soft, with no other lesions around, though there is slight induration just to the left and slightly posterior of the incision site. No fluctuance. No mass sensation. Back/Spine/Pelvis Back: No CVA tenderness Cervical Spine: cervical ROM normal and No pain with cervical ROM Thoracic/Lumbar Spine: thoracic and lumbar spine normal to inspection Skin General: no rashes or lesions noted, No jaundice and No petechiae Neuro General: alert, oriented x3, gait normal and no focal motor deficits Speech: speech normal Extrem General: full ROM, no clubbing, cyanosis or edema, no pedal edema and no calf tenderness Psych Appearance: well kempt Mental Status: mental status grossly normal Attitude: cooperative Thought Content: normal and suicidality Judgment: judgment good Course Course Narrative: Patient was treated symptomatically with IV fluids, Zofran, Toradol, and Dilaudid. He was fairly well-appearing in the emergency department, and actually, his incision site looked quite good. I did not find evidence of recurrence of an abscess on exam, and there is no evidence of cellulitis. Patient was worked up with labs and UA, which were unremarkable. CT scan of the abdomen and pelvis was performed with IV contrast, and showed minimal change in the size of the abscess, though no signs of any worsening. I did consult with Dr. Hedrick, who did come see the patient in the emergency department after viewing his studies, and felt the patient should go back to the operating room for further exploration. Patient agreed and was taken from the ED to the operating room. Orders Ordered: Discontinued Medications Bupivacaine HCl (Sensorcaine 0.5% (Pf)) 30 ml INJ NOW ONE Stop: 01/18/19 15:04 Last Admin: 01/18/19 15:03 Dose: 20 ml Fentanyl (Sublimaze) 50 mcg IV Q5MIN PRN PRN Reason: Pain, Moderate (4-6) Hydromorphone HCl (Dilaudid) 1 mg IV NOW ONE Stop: 01/18/19 07:44 Last Admin: 01/18/19 07:52 Dose: 1 mg Hydromorphone HCl (Dilaudid) 1 mg IV NOW ONE Stop: 01/18/19 11:55 Last Admin: 01/18/19 11:54 Dose: 1 mg Hydromorphone HCl (Dilaudid) 0.5 mg IV Q5MIN PRN PRN Reason: Pain, Moderate (4-6) Sodium Chloride (Normal Saline 0.9%) 1,000 mls @ 1,000 mls/hr IV BOLUS ONE Stop: 01/18/19 08:42 Last Infusion: 01/18/19 08:53 Dose: 0 mls/hr Admin: 01/18/19 07:51 Dose: 1,000 mls/hr Lactated Ringer's (Lactated Ringers) 1,000 mls @ 42 mls/hr IV NOW ONE Stop: 01/19/19 13:18 Last Admin: 01/18/19 13:31 Dose: 42 mls/hr Ketorolac Tromethamine (Toradol) 30 mg IV NOW ONE Stop: 01/18/19 07:44 Last Admin: 01/18/19 07:51 Dose: 30 mg Ketorolac Tromethamine (Toradol) 30 mg IV NOW ONE Stop: 01/18/19 15:48 Last Admin: 01/18/19 15:48 Dose: 30 mg Meperidine HCl (Demerol) 25 mg IV Q5MIN PRN PRN Reason: Pain or shivering Ondansetron HCl (Zofran) 4 mg IV NOW ONE Stop: 01/18/19 07:44 Last Admin: 01/18/19 07:51 Dose: 4 mg Ondansetron HCl (Zofran) 4 mg IV NOW PRN PRN Reason: Nausea And Vomiting Vital Signs - 8 hr 01/18/19 13:39 01/18/19 15:13 01/18/19 15:18 Temperature 97.2 F L 97.4 F L Pulse Rate 84 94 H 94 H Respiratory Rate 16 14 14 Blood Pressure 132/96 H 124/93 H 126/97 H Pulse Oximetry 100 98 96 01/18/19 15:23 01/18/19 15:24 01/18/19 15:53 Temperature 98.7 F 98.1 F 97.6 F Pulse Rate 93 H 92 H 75 Respiratory Rate 10 L 12 16 Blood Pressure 143/98 H 126/91 H 124/84 Pulse Oximetry 96 98 99 MDM - Skin/Abscess/Foreign Bdy Medical Records Attestation: I reviewed the patient's medical records. Lab Data Attestation: I reviewed the patient's lab results. Result diagrams: 01/18/19 07:43 01/18/19 07:43 Lab Results 01/18/19 01/18/19 Range/Units 07:43 07:43 WBC 9.0 (4.5-11.0) X10^3/uL RBC 4.89 (4.5-5.9) X10^6/uL Hgb 15.3 (13.5-17.5) g/dL Hct 45.0 (41-53) % MCV 92.0 (80-100) fL MCH 31.3 (26-34) PG MCHC 34.1 (30-36) % RDW 13.4 (11.6-14.8) % Plt Count 260 (150-400) X10^3/uL Neut % (Auto) 78.5 H (50-75) % Lymph % (Auto) 11.0 L (25-40) % [place] % (Auto) 8.9 (3-14) % Eos % (Auto) 1.2 L (2-4) % Baso % (Auto) 0.4 (0-2) % Neut # (Auto) 7100 H (8839-3715) /uL Lymph # (Auto) 1000 L (1320-1616) /uL [place] # (Auto) 800 (0-900) /uL Eos # (Auto) 100 (0-450) /uL Baso # (Auto) 0 (0-100) /uL Sodium 140 (137-145) mmol/L Potassium 4.2 (3.4-5.1) mmol/L Chloride 104 (98-107) mmol/L Carbon Dioxide 27 (22-32) mmol/L BUN 12 (9-20) mg/dL Creatinine 0.80 (0.66-1.25) mg/dL Estimated GFR > 60.0 (>60) mL/min BUN/Creatinine Ratio 15.0 (6-22) Glucose 109 H (70-100) mg/dL Calcium 8.9 (8.4-10.2) mg/dL Total Bilirubin 0.4 (0.2-1.3) mg/dL AST 22 (17-59) IU/L ALT 26 (21-72) IU/L Alkaline Phosphatase 97 (38-126) U/L Total Protein 7.4 (6.3-8.2) g/dL Albumin 4.3 (3.5-5.0) g/dL Globulin 3.1 (1.7-4.1) g/dL Albumin/Globulin Ratio 1.4 (1.0-2.8) Imaging Data CT scan - abdomen: Radiologist's impression: PROCEDURE: CT ABDOMEN PELVIS W CON INDICATIONS: increasing pain post-op rectal abscess TECHNIQUE: After the administration of intravenous contrast, 5 mm thick sections acquired from the diaphragm to the symphysis. 5 mm coronal and sagittal reformats were acquired. For radiation dose reduction, the following was used: automated exposure control, adjustment of mA and/or kV according to patient size. COMPARISON: [facility], CT, CT ABDOMEN PELVIS W CON, 01/13/2019, 18:31. FINDINGS: Image quality: Lower pelvis particularly at the level the bladder is significantly limited secondary to metallic streak artifact from bilateral hip arthroplasties. ABDOMEN: Lung bases: Lung bases are clear. Heart size is normal. Solid organs: Liver is enlarged with steatosis.. Gallbladder is unremarkable. Biliary system is non dilated. Pancreas enhances normally. Spleen is normal in size and enhancement. No adrenal nodules. Kidneys demonstrate normal size and enhancement, without hydronephrosis. Peritoneum and bowel: Bowel loops demonstrate demonstrate a mild appearance of fluid filled small bowel loops particularly within the anterior pelvis. As identified on prior exam, there is a perirectal fluid collection identified. It measures approximately 22 mm AP by 23 mm transverse x 15 mm craniocaudal. compared to 22 mm AP by 23 mm transverse by 16 mm craniocaudal. Nodes and vessels: No retroperitoneal or mesenteric adenopathy by size criteria. Aorta and inferior vena cava are normal in size. Miscellaneous: No ventral hernias. Mild distal esophageal thickening. PELVIS: Genitourinary: Bladder wall thickness is normal. Miscellaneous: No inguinal hernias or adenopathy. Bones: No suspicious bony lesions. No vertebral body compression fractures. Bilateral hip arthroplasties are present. IMPRESSION: 1. Persistent appearance of perirectal abscess minimally decreased compared to prior exam. Dictated by: Aster Han M.D. on 01/18/2019 at 9:27 Approved by: Aster Han M.D. on 01/18/2019 at 9:35 Discharge Plan Departure Patient Disposition: Admitted as Observation Clinical Impression: Perirectal abscess Discharge Date/Time: 01/18/19 13:25 Interventions: ED Discharge Assessment Last Done: 01/18/19 13:25 Admit Date/Time: 01/18/19 13:31 Admit Provider: Bob Hedrick
[2019-01-18 08:09] LABS: Alanine Aminotransferase 26 IU/L (21-72); Albumin 4.3 g/dL (3.5-5.0); Albumin Globulin Ratio 1.4 (1.0-2.8); Alkaline Phosphatase 97 U/L (38-126); Aspartate Aminotransferase 22 IU/L (17-59); Bilirubin Total 0.4 mg/dL (0.2-1.3); Blood Urea Nitrogen 12 mg/dL (9-20); Calcium 8.9 mg/dL (8.4-10.2); Carbon Dioxide 27 mmol/L (22-32); Chloride 104 mmol/L (98-107); Estimated Glomerular Filt Rate > 60.0 mL/min (>60); Globulin 3.1 g/dL (1.7-4.1); Glucose 109 mg/dL (70-100); HEMOLYSIS < 15 (0-50); Potassium 4.2 mmol/L (3.4-5.1); Sodium 140 mmol/L (137-145); Total Protein 7.4 g/dL (6.3-8.2)
--- NOTE | 2019-01-18 09:22 | DI.CT.S_ITS ---
PROCEDURE: CT ABDOMEN PELVIS W CON INDICATIONS: increasing pain post-op rectal abscess TECHNIQUE: After the administration of intravenous contrast, 5 mm thick sections acquired from the diaphragm to the symphysis. 5 mm coronal and sagittal reformats were acquired. For radiation dose reduction, the following was used: automated exposure control, adjustment of mA and/or kV according to patient size. COMPARISON: [facility], CT, CT ABDOMEN PELVIS W CON, 01/13/2019, 18:31. FINDINGS: Image quality: Lower pelvis particularly at the level the bladder is significantly limited secondary to metallic streak artifact from bilateral hip arthroplasties. ABDOMEN: Lung bases: Lung bases are clear. Heart size is normal. Solid organs: Liver is enlarged with steatosis.. Gallbladder is unremarkable. Biliary system is non dilated. Pancreas enhances normally. Spleen is normal in size and enhancement. No adrenal nodules. Kidneys demonstrate normal size and enhancement, without hydronephrosis. Peritoneum and bowel: Bowel loops demonstrate demonstrate a mild appearance of fluid filled small bowel loops particularly within the anterior pelvis. As identified on prior exam, there is a perirectal fluid collection identified. It measures approximately 22 mm AP by 23 mm transverse x 15 mm craniocaudal. compared to 22 mm AP by 23 mm transverse by 16 mm craniocaudal. Nodes and vessels: No retroperitoneal or mesenteric adenopathy by size criteria. Aorta and inferior vena cava are normal in size. Miscellaneous: No ventral hernias. Mild distal esophageal thickening. PELVIS: Genitourinary: Bladder wall thickness is normal. Miscellaneous: No inguinal hernias or adenopathy. Bones: No suspicious bony lesions. No vertebral body compression fractures. Bilateral hip arthroplasties are present. IMPRESSION: 1. Persistent appearance of perirectal abscess minimally decreased compared to prior exam. Dictated by: Aster Han M.D. on 01/18/2019 at 9:27 Approved by: Aster Han M.D. on 01/18/2019 at 9:35
--- NOTE | 2019-01-18 12:58 | P.HP_ITS ---
History of Present Illness Date Patient Seen: 01/18/19 Time Patient Seen: 12:53 Chief complaint: pain,post surgery Narrative: Patient is a gentleman who had an I and D of a perirectal abscess less . He was doing well until yesterday his pain increased to greater than what it was prior to the operation. He has become exquisitely tender in use narcotics last night for the 1st time. He came to the emergency room. Last solid food was yesterday night. Patient has had a few sips of water early today. Patient History Medical History Encounter for recheck of abscess following incision and drainage (Acute) Perirectal abscess (Acute) Surgical History History of hip replacement (Acute) Social History household members: spouse Smoking Status: Never smoker Family & Social History Social History: household members spouse Safety & Behavioral: Feels Safe in Current Yes Environment Been Physically Hurt or No Threatened By a Person Tobacco & Substance use: Smoking Status Never smoker alcohol intake frequency 0-2 drinks per day Substance Use Type does not use Meds Home Medications Medication Instructions Recorded Confirmed Type docusate sodium [DOK] 100 mg PO BID PRN 60 Days #120 cap 01/14/19 01/18/19 Rx ibuprofen 800 mg PO TID #60 tab 01/14/19 01/18/19 Rx oxycodone-acetaminophen 1 tab PO Q4HR PRN #40 tab 01/14/19 01/18/19 Rx polyethylene glycol 3350 17 gm PO DAILY 60 Days each 01/14/19 Rx Allergies Allergy/AdvReac Type Severity Reaction Status Date / Time Penicillins Allergy Verified 01/18/19 07:35 Review of Systems Review of Systems No cardiopulmonary symptoms. Has had hip replacements. No seizures or blackouts. Exam Vital Signs (past 8 hours): - 01/18/19 07:35 01/18/19 10:13 Temperature 98.6 F Pulse Rate 66 68 Respiratory Rate 18 16 Blood Pressure 138/94 H Blood Pressure [Left Arm] 120/90 Pulse Oximetry 100 100 Oxygen Delivery Method Room Air Narrative Exam Narrative: Co operative. Lungs clear. Heart regular rate and rhythm without murmur gallop. Abdomen is nontender. Id site noted. Exquisitely tender in the area. Really can't get an adequate exam in the ER. Objective Labs Result Diagrams: 01/18/19 07:43 01/18/19 07:43 Labs: Laboratory Results - last 24 hr 01/18/19 01/18/19 07:43 07:43 WBC 9.0 RBC 4.89 Hgb 15.3 Hct 45.0 MCV 92.0 MCH 31.3 MCHC 34.1 RDW 13.4 Plt Count 260 Neut % (Auto) 78.5 H Lymph % (Auto) 11.0 L [place] % (Auto) 8.9 Eos % (Auto) 1.2 L Baso % (Auto) 0.4 Neut # (Auto) 7100 H Lymph # (Auto) 1000 L [place] # (Auto) 800 Eos # (Auto) 100 Baso # (Auto) 0 Sodium 140 Potassium 4.2 Chloride 104 Carbon Dioxide 27 BUN 12 Creatinine 0.80 Estimated GFR > 60.0 BUN/Creatinine Ratio 15.0 Glucose 109 H Calcium 8.9 Total Bilirubin 0.4 AST 22 ALT 26 Alkaline Phosphatase 97 Total Protein 7.4 Albumin 4.3 Globulin 3.1 Albumin/Globulin Ratio 1.4 Assessment & Plan Assessment & Plan narrative: It is hard to gauge this gentleman's pain. He insisted on sedation before he was willing to have a rectal exam at his prior visit and ultimately ended up having a CT scan. He had a repeat scan today which showed a fluid collection similar to the 1 last week. I do not know if the opening close prematurely or what transpired. The only way to assess this properly is in the OR. I have discussed this with the patient and he agrees to proceed.
[2019-01-18] MEDS: LACTATED RINGERS 1,000 ML 42 ML IV (13:31)
--- NOTE | 2019-01-18 13:45 | SUR.PREOP ---
Obtained from the ER; ambulated to the [facility], accompanied. She is taking all personal belongings including glasses. Pain 2-3/10 upon ambulation. Ready for surgery; calm, able to joke, asking many questions.
--- NOTE | 2019-01-18 14:54 | SUR.OPER ---
Prone on padded OR bed, head in foam head support, gel chest rolls, gel pad under knees, pillow under lower legs, toes free of pressure, arms secured on padded arm boards at <90 degrees abduction. Safety belt at thigh.
[2019-01-18] MEDS: BUPIVACAINE 0.5% (PF) VIAL 30 ML INJ (15:03)
--- NOTE | 2019-01-18 15:19 | P.OP_ITS ---
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 He was prepped and dr georgina in the usual fashion. Digital exam really revealed a fullness in the left posterior lateral location where the prior drainage had taken place. The bivalve anoscope was inserted and circumferential exam undertaken. The only area of abnormality was in the same region is the fullness as there were suture material of chromic in that is region. I probed the prior wound and the fullness still persisted beyond that abscess cavity. Using a blunt clamp I carefully entered into the intersphincteric space and drained about a half a cup of pus. The opening was enlarged slightly and suctioned out. A lacrimal probe was inserted into the cavity and a search made for the internal fistula tract that might be expected to be in the posterior midline. In fact the probe fell into it and I used this to secure and 1. Prolene to it the probe was pulled out and the suture grasped and was used to create a seton. I irrigated out the cavity and tract. They were then all packed with gauze soaked in 0.5% bupivacaine. Dressing was applied patient was flipped extubated taken recovery area in good condition. Complications: none Condition: stable Disposition: PACU Plan for aftercare: Patient has follow-up appointment
[2019-01-18] MEDS: KETOROLAC 30 MG/ML VIAL IV (15:48)
--- NOTE | 2019-01-18 15:51 | SUR.PHASEII ---
8272 Patient has requested repeat Ketorolac dose in anticipation of ferry ride home. Pt and spouse state that it helped significantly with the pain this morning. Dr. Jiménez called; order obtained - Rx given. Pain 6/10; denies nausea. Tolerating PO well. has gone to obtain food, snacks given.
--- NOTE | 2019-01-18 15:57 | SUR.PHASEII ---
Makayla Block RN reported that she reviewed instructions w/patient/. Ready for discharge.
== END 2019-01-18 16:13 | disposition home or self-care (01) ==
LOC: ED 13:28 → AC 13:34
PROVIDERS: Admitting Provider Specialist; Emergency Provider Emergency Medicine; PCP Nurse Practitioner Family; Visit Provider Specialist
PROC: (CPT 45990; principal; 2019-01-18 14:00)
DX: K61.4 Intrasphincteric abscess (principal); G89.18 Other acute postprocedural pain
CPT/HCPCS: 46040; 36415; 36591; 74177; 80053; 85025; 96361; 96374; 96375; 96376; 99283; 99284; G0378; J1170; J1885; J2405; J3010; Q9967

== ENCOUNTER 2019-02-04 11:50 | Day surgery (SDC) | payer OTHER, SELFPAY ==
[2019-01-13 23:23] VITALS: BMI 25.3
[2019-02-04] VITALS (8 sets, daily range): BP systolic 121–154; BP diastolic 50–96; PULSE 72–108; RESP 12–21; TEMP 36.2–36.6; O2SAT 96–99; BMI 26.4
--- NOTE | 2019-02-04 12:39 | PM.PREOP ---
Pre-operative Note Interval Note History & Physical reviewed/Exam performed by Physician: Yes Changes to H&P: No
[2019-02-04] MEDS: CEFOTETAN 2 GM/50 ML PIGGYBACK IV (14:00)
[2019-02-04] MEDS: BUPIVACAINE 0.5% W/ EPI (PF) VIAL 30 ML INJ (14:44)
[2019-02-04] MEDS: LIDOCAINE 5% OINT 35 GM 1 APPLIC TOP (14:50)
--- NOTE | 2019-02-04 14:50 | PM.OP.1 ---
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 Exam Under Anesthesia 2. Removal of Seton 3. Fistulotomy Same procedure as scheduled: Yes Indications: 53yo M with seton in place for anorectal fistula after abscess drainage. On limited office exam, appears superficial now and no evidence of ongoing infection. Patient is quite uncomfortable. Discussed plan for exam and either removal of seton with fistulotomy or replacement of seton. Surgeon: Micaela Mendoza Anesthesia Type: General Operative Notes Findings: no ongoing infection, seton is superficial to muscle Closure Type: non-primary Specimen(s): none sent Procedure in detail: The patient was taken to the operating room and placed on the operating table in prone jacknife position after induction of appropriate anesthesia. The perineal and buttocks areas were prepped and draped in usual sterile fashion. Visual inspection of the anus shows the seton in place, no erythema or induration, no signs of active infection. A lubricated retractor was placed in the anus. A probe was placed in the skin defect passed through the tract with the seton. Upon retraction, this did not appear to be deep the sphincter muscles. Therefore, a superficial fistulotomy was performed using electrocautery and the seton was cut and removed. Hemostasis was obtained using electrocautery.The remainder of the examined anal canal and perianal skin was examined and no other defects or evidence of abscess were noted. Topical 1% lidocaine jelly was inserted into the anus. An ABD pad and mesh briefs were placed. The patient was awakened and taken to the PACU in stable condition. All counts were correct at the end of the procedure. The patient tolerated the procedure well. Complications: none Condition: stable Disposition: PACU
[2019-02-04] MEDS: fentaNYL 100 MCG/2 ML INJ 50 MCG IV (15:13)
[2019-02-04] MEDS: OXYCODONE/ACETAMINOPHEN 5/325 TABLET 1 TAB PO (15:18)
--- NOTE | 2019-02-04 15:43 | SUR.PHASEI ---
1540 TO OPD, stretcher down and locked, report given, tolerating PO well, no nausea, Pain well controlled. patient alert, talkative. Stable.
== END 2019-02-04 15:55 | disposition home or self-care (01) ==
PROVIDERS: PCP Nurse Practitioner Family; Visit Provider Surgery
PROC: (CPT 45990; principal; 2019-02-04 13:30)
PROC: (CPT 46030; 2019-02-04 13:30)
DX: K60.3 Anal fistula (principal)
CPT/HCPCS: 46030; J0330; J1100; J1885; J2250; J2405; J2704; J3010

== ENCOUNTER → 2025-07-04 17:58 | Outpatient (CLI) | payer BC, SELFPAY ==
[2019-01-13 23:23] VITALS: BMI 25.3
--- NOTE | 2025-07-04 18:04 | DI.MRI.S_ITS ---
PROCEDURE: MR ELBOW LT W CON INDICATIONS: Strain of muscle TECHNIQUE: Noncontrast coronal proton density fast spin echo and T2 fast spin echo with fat saturation, axial and sagittal T1 spin echo and T2 fast spin echo with fat saturation through the elbow. COMPARISON: [facility], MR, MR ELBOW LT WO CON, 02/17/2018, 9:08. FINDINGS: Image quality: Excellent. Lateral structures: Proximal radial collateral ligament is thickened with intrasubstance T2 hyperintense signal at its lateral epicondylar insertion. The overlying common extensor tendon also appears mildly thickened at its lateral epicondylar insertion. Medial structures: The ulnar collateral ligament appears intact. The overlying common flexor tendon appears normal. The ulnar nerve appears normal in size and signal within the cubital tunnel. Anterior structures: There is suggestion of full-thickness rupture involving distal biceps tendon at its proximal radial insertion with up to 4.1 cm proximal retraction of torn tendon fibers to the level humeral condyles with [id number] amount of surrounding fluid. Distal brachialis tendon is intact. Nonvisualization of the normal intact lacertus fibrosus concerning for ruptured lacertus. The median and radial neurovascular bundles appear normal; no focal muscle atrophy to suggest nerve impingement. Posterior structures: The conjoint triceps tendon from the long and lateral heads appears intact. The medial head of the triceps tendon also appears normal, with direct muscle insertion onto the olecranon. No olecranon bursal fluid. Bone and cartilage: No bone marrow contusions or fractures. No osteochondral injuries. IMPRESSION: 1. Finding is consistent with full-thickness rupture of distal biceps tendon at its proximal radial insertion with up to 4.1 cm proximal retraction of torn tendon fibers and surrounding soft tissue edema and fluid. Suggestion of ruptured lacertus fibrosis. 2. Distal brachialis tendon is intact. 3. Suggestion of mild lateral epicondylitis. 4. No marrow edema. No fracture or dislocation. No intra-articular loose bodies. Dictated by: Diego Ellis M.D. on 07/05/2025 at 9:05 Approved by: Diego Ellis M.D. on 07/05/2025 at 9:09
== END ==
LOC: MRI 18:02
PROVIDERS: Referring Provider Orthopaedic Surgery; Visit Provider Orthopaedic Surgery
DX: S46.212A Strain of muscle, fascia and tendon of other parts of biceps, left arm, initial encounter (principal); X58.XXXA Exposure to other specified factors, initial encounter
CPT/HCPCS: 73221